=== PATIENT | male | born 1995 | race Caucasian/White ===

== ENCOUNTER 2016-04-21 17:03 | Emergency (ER) | payer BC ==
[2016-04-21 17:16] VITALS: BP 129/68
--- NOTE | 2016-04-21 17:47 | UC ---
Respiratory Complaint HPI - HPI Summary HPI Summary: This is a 21 yo male with asthma who presents with a request for a refill of his albuterol inhaler. He has been using his albuterol every 4 hours even throughout the night for several months. Denies any recent worsening of his symptoms but states that he wasn't able to get in to see his PCP for a refill in a timely manner. He reports he has frequent SOB, cough and chest tightness. These symptoms are relieved for a couple hours after using the inhaler. - History of Current Complaint Chief Complaint: UC Stated Complaint: COUGH - Allergies/Home Medications Allergies/Adverse Reactions: Allergies Allergy/AdvReac Type Severity Reaction Status Date / Time No Known Allergies Allergy Verified 04/21/16 17:17 PMH/Surg Hx/FS Hx/Imm Hx Respiratory History Of: Reports: Asthma Denies: Pneumonia Psychological History Of: Denies: Depression - Surgical History Surgical History: None - Family History Known Family History: Positive: None Negative: Cardiac Disease Family History: R & n/C - Social History Alcohol Use: Occasionally Substance Use Type: None Smoking Status (MU): Former Smoker Type: Cigarettes - Immunization History Most Recent Influenza Vaccination: 2015/2016 Review of Systems Constitutional: Negative Skin: Negative Eyes: Negative ENT: Negative Respiratory: Shortness Of Breath, Cough Cardiovascular: Negative Gastrointestinal: Negative Genitourinary: Negative Motor: Negative Neurovascular: Negative Musculoskeletal: Negative Neurological: Negative Psychological: Negative All Other Systems Reviewed And Are Negative: Yes Physical Exam Triage Information Reviewed: Yes Appearance: Well-Appearing Vital Signs: Initial Vital Signs Temp 98.7 F 04/21/16 17:10 Pulse 80 04/21/16 17:10 Resp 20 04/21/16 17:10 BP 129/68 04/21/16 17:10 Pulse Ox 99 04/21/16 17:10 Vital Signs Reviewed: Yes ENT: Positive: Normal ENT inspection Neck: Positive: Supple, Nontender Respiratory: Positive: Chest non-tender, Lungs clear, Normal breath sounds. Negative: Crackles, Rhonchi, Wheezing Cardiovascular Exam: Normal Cardiovascular: Positive: RRR, No Murmur Diagnostic Evaluation - Laboratory O2 Sat by Pulse Oximetry: 99 Respiratory Course/Dx - Course Course Of Treatment: This is a 21 yo male with poorly controlled asthma who presents requesting a refill of his albuterol. Recommend initiating Advair and Singulair to augment his asthma treatment. Refill for the albuterol sent to his pharmacy of choice along with the new prescriptions. Recommended that he follow up with his PCP at the next available appointment and his symptoms should be closely followed - Differential Dx/Diagnosis Differential Diagnosis/HQI/PQRI: Asthma, Bronchitis, Laryngitis, Sinusitis Provider Diagnoses: 1. Asthma - poorly controlled without acute exacerbation Discharge - Discharge Plan Condition: Stable Disposition: HOME Prescriptions: Albuterol HFA INHALER* [Ventolin HFA Inhaler*] 2 puff INH Q4H PRN #1 mdi PRN Reason: cough/SOB Fluticasone-Salmeterol 100-50* [Advair Diskus 100-50*] 1 puff INH BID #1 diskus Montelukast Sodium TAB* [Singulair TAB*] 10 mg PO DAILY #30 tab Patient Education Materials: Asthma (ED) Referrals: No Primary Care Phys,NOPCP [Primary Care Provider] - Additional Instructions: Activity: No restrictions Instructions: 1. Please follow up with your PCP at the next available appointment 2. Please take the new inhalers and allergy medications as directed 3. Continue to use albuterol as needed
== END 2016-04-21 17:55 | disposition home or self-care (01) ==
LOC: UCEAST 17:03
DX: J45.909 Unspecified asthma, uncomplicated (principal); Z76.0 Encounter for issue of repeat prescription; Z87.891 Personal history of nicotine dependence
CPT/HCPCS: 99212; G0463

== ENCOUNTER 2016-05-11 17:03 | Emergency (ER) | payer BC ==
[2016-05-11 17:45] VITALS: BP 123/64
[2016-05-11] MEDS ORDERED: Ibuprofen TAB* 600 MG PO ONE (18:03)
--- NOTE | 2016-05-11 18:34 | RAD ---
HISTORY: Right fifth digit injury COMPARISONS: None VIEWS: 3, Frontal, lateral, and oblique views of the fifth digit of the right hand FINDINGS: BONE DENSITY: Normal. BONES: On one projection, there is a linear lucency of the head of the fifth metacarpal JOINTS: There is no arthropathy. ALIGNMENT: There is no dislocation. SOFT TISSUES: Unremarkable. OTHER FINDINGS: None. IMPRESSION: PROBABLE NONDISPLACED FRACTURE OF THE DISTAL FIFTH METACARPAL
--- NOTE | 2016-05-22 11:59 | UC ---
Upper Extremity HPI - HPI Summary HPI Summary: jammed right 5th finger in a door today - History of Current Complaint Chief Complaint: UCGeneralIllness Stated Complaint: FINGER INJURY Time Seen by Provider: 05/11/16 17:53 Hx Obtained From: Patient ?: No Onset/Duration: Sudden Onset, Lasting Hours - 7, Still Present Severity Initially: Moderate Severity Currently: Moderate Pain Intensity: 6 Pain Scale Used: 0-10 Numeric Location Of Pain: Is Discrete @ - right 5th finger Character: Aching, Throbbing Aggravating Factor(s): Movement Alleviating Factor(s): Nothing Associated Signs And Symptoms: Positive: Swelling Related History: Dominant Hand Right - Allergies/Home Medications Allergies/Adverse Reactions: Allergies Allergy/AdvReac Type Severity Reaction Status Date / Time cat dander Allergy Intermediate Shortness Uncoded 05/11/16 17:31 of Breath PMH/Surg Hx/FS Hx/Imm Hx Previously Healthy: No Respiratory History Of: Reports: Asthma Denies: Pneumonia Psychological History Of: Denies: Depression - Surgical History Surgical History: None - Family History Known Family History: Positive: None Negative: Cardiac Disease Family History: R & n/C - Social History Occupation: Employed Full-time Lives: With Family Alcohol Use: Occasionally Substance Use Type: None Smoking Status (MU): Current Every Day Smoker Type: eCigarettes Have You Smoked in the Last Year: Yes Cessation Counseling: Patient Advised to Stop - Immunization History Most Recent Influenza Vaccination: 2015/2016 Review of Systems Constitutional: Negative Skin: Negative Eyes: Negative ENT: Negative Respiratory: Negative Cardiovascular: Negative Gastrointestinal: Negative Genitourinary: Negative Motor: Negative, Decreased ROM - right 5th finger Neurovascular: Negative Musculoskeletal: Negative, Arthralgia - right 5th finger Neurological: Negative Psychological: Negative All Other Systems Reviewed And Are Negative: Yes Physical Exam Triage Information Reviewed: Yes Appearance: Well-Appearing, No Pain Distress, Well-Nourished Vital Signs: Initial Vital Signs Temp 99 F 05/11/16 17:34 Pulse 78 05/11/16 17:34 Resp 18 05/11/16 17:34 BP 123/64 05/11/16 17:34 Pulse Ox 99 05/11/16 17:34 Eye Exam: Normal Eyes: Positive: Conjunctiva Clear ENT Exam: Normal ENT: Positive: Normal ENT inspection, Hearing grossly normal. Negative: Nasal congestion, Nasal drainage, Trismus, Muffled/hoarse voice Dental Exam: Normal Neck exam: Normal Neck: Positive: Supple, Nontender Respiratory Exam: Normal Respiratory: Positive: No respiratory distress, No accessory muscle use Cardiovascular Exam: Normal Cardiovascular: Positive: RRR, Pulses Normal, Brisk Capillary Refill Musculoskeletal Exam: Other Musculoskeletal: Positive: ROM Limited @ - right 5th finger, Edema @ - right fifth finger Neurological Exam: Normal Neurological: Positive: Alert, Muscle Tone Normal Psychological Exam: Normal Skin Exam: Normal Diagnostics - Radiology No standard instances Xray Interpretation: Positive (See Comments) - non displaced fracture of distal 5th metacarpal Radiology Interpretation Completed By: Radiologist Upper Extremity Course/Dx - Course Course Of Treatment: splint, rice, ibuprofen follow with ortho off work until cleared by ortho - Differential Dx/Diagnosis Differential Diagnosis/HQI/PQRI: Fracture (Closed), Strain, Sprain Provider Diagnoses: non-displaced fracture distal 5th metacarpal Discharge - Discharge Plan Condition: Stable Disposition: HOME Patient Education Materials: Ibuprofen (By mouth), Finger Fracture (ED), RICE Therapy (ED) Forms: *Work Release Referrals: Freddie Mendieta MD [Primary Care Provider] - Evita Szymanski MD [Medical Doctor] - 5 Days
== END 2016-05-11 19:08 | disposition home or self-care (01) ==
LOC: UCEAST 17:03
DX: S62.346A Nondisplaced fracture of base of fifth metacarpal bone, right hand, initial encounter for closed fracture (principal); W23.0XXA Caught, crushed, jammed, or pinched between moving objects, initial encounter; Y93.9 Activity, unspecified; Y92.9 Unspecified place or not applicable; J45.909 Unspecified asthma, uncomplicated; F17.210 Nicotine dependence, cigarettes, uncomplicated
CPT/HCPCS: 73140; 99213; A9270-GY; G0463

== ENCOUNTER 2017-09-13 11:39 | Emergency (ER) | payer BC ==
[2017-09-13 11:46] VITALS: BP 125/65
--- NOTE | 2017-09-13 12:00 | UC ---
Throat Pain/Nasal Joaquin HPI - HPI Summary HPI Summary: This is chayo Patel documenting for Dr. Manuel Church MD. Pt is a 22 y/o M who presents to [facility] c/o sore throat for past 2 days. Rates pain intensity as 8/10 in severity. Describes the pain as a sharp, burning, ache per nurses report. Notes body aches and dysphagia. - History of Current Complaint Chief Complaint: UCGeneralIllness Stated Complaint: SORE THROAT Time Seen by Provider: 09/13/17 11:49 Hx Obtained From: Patient Onset/Duration: Lasting Days, Still Present Severity: Severe Pain Intensity: 8 Pain Scale Used: 0-10 Numeric Associated Signs & Symptoms: Positive: Dysphagia, Other - Body Aches - Allergies/Home Medications Allergies/Adverse Reactions: Allergies Allergy/AdvReac Type Severity Reaction Status Date / Time cat dander Allergy Intermediate Shortness Uncoded 09/13/17 11:47 of Breath PMH/Surg Hx/FS Hx/Imm Hx Endocrine History: Diabetes - NEGATIVE Cardiovascular History: Hypertension - NEGATIVE - Surgical History Surgical History: None - Family History Known Family History: Negative: Cardiac Disease Family History: R & n/C - Social History Alcohol Use: Occasionally Substance Use Type: None Smoking Status (MU): Former Smoker Type: eCigarettes Have You Smoked in the Last Year: Yes - Immunization History Most Recent Influenza Vaccination: 2016/2017 Review of Systems Constitutional: Other - Body aches ENT: Sore Throat, Other - Dysphagia All Other Systems Reviewed And Are Negative: Yes Physical Exam - Summary Physical Exam Summary: VITAL SIGNS: Reviewed. GENERAL: Patient is a well-developed and nourished male who is lying comfortable in the stretcher. Patient is not in any acute respiratory distress. HEAD AND FACE: Normocephalic EYES: PERRLA, EOMI x 2. EARS: Hearing grossly intact. MOUTH: Phayngeal erythema. Exudate on tonsils. NECK: Supple, trachea is midline, no adenopathy, no JVD, no carotid bruit. CHEST: Symmetric, no tenderness at palpation LUNGS: Clear to auscultation bilaterally. No wheezing or crackles. CVS: Regular rate and rhythm, S1 and S2 present, no murmurs or gallops appreciated. ABDOMEN: Soft, non-tender. Bowel sounds are normal. No abdominal abnormal pulsations. EXTREMITIES: Full ROM in all major joints, no edema, no cyanosis or clubbing. NEURO: Alert and oriented x 3. No acute neurological deficits. Speech is normal and follows commands. SKIN: Dry and warm Triage Information Reviewed: Yes Vital Signs: Initial Vital Signs Temp 98.6 F 09/13/17 11:44 Pulse 86 09/13/17 11:44 Resp 17 09/13/17 11:44 BP 125/65 09/13/17 11:44 Pulse Ox 100 09/13/17 11:44 Vital Signs Reviewed: Yes Re-Evaluation - Re-Evaluation First Eval Re-Evaluation Time: 12:35 - Discussed exam results with pt. Pt asked for a note off work today. Throat Pain/Nasal Course/Dx - Course Assessment/Plan: Patient is a 22-year-old male with chief complaint of sore throat. Strep pharyngitis positive. The patient was given Augmentin and discharged home with follow-up with PCP. Patient was given an excuse for work for today. He was instructed to go to the ED the patient's worsen. Patient understands and agrees. - Differential Dx/Diagnosis Differential Diagnosis/HQI/PQRI: Epiglottitis, Laryngitis, Augusto's Angina, Peritonsillar Abscess, Pharyngitis, Tonsillitis Provider Diagnoses: Strep pharyngitis Discharge - Sign-Out/Discharge Documenting (check all that apply): Patient Departure - Discharge Plan Condition: Stable Disposition: HOME Prescriptions: Amoxicillin/Clavulanate TAB* [Augmentin TAB 875*] 875 mg PO BID #20 tab Patient Education Materials: Strep Throat (DC) Forms: *Work Release Referrals: [facility] [Outside] No Primary Care Phys,NOPCP [Primary Care Provider] - Additional Instructions: Take medications as instructed and adhere to plan Take Acetaminophen or ibuprofen for pain or fever Increase your fluid intake Return to the or go to the emergency department if symptoms worsen Follow-up with primary care physician in next 2-3 days - Billing Disposition and Condition Condition: STABLE Disposition: Home
== END 2017-09-13 12:40 | disposition home or self-care (01) ==
LOC: UCEAST 11:39
DX: J02.0 Streptococcal pharyngitis (principal); Z87.891 Personal history of nicotine dependence
CPT/HCPCS: 87651; 99212; G0463

== ENCOUNTER 2019-05-11 09:06 | Emergency (ER) | payer BC ==
[2019-05-11] MEDS ORDERED: Ibuprofen TAB* 600 MG PO ONE (09:23)
[2019-05-11] MEDS ORDERED: Lidocaine 2% VISCOUS* 15 ML UDC PO ONE (09:23)
--- NOTE | 2019-05-11 09:27 | ED ---
Throat Pain/Nasal Congestion - HPI Summary HPI Summary: 24 year old male with no significant medical history presents to the emergency department with a CC of /10 "sore throat and shortness of breath" x 2 days. Pt has an associated fever which he measured at 102.0 F at home. Pt has been taking ibuprofen for fever and pain; ;last dose at 2am. Pt states due to his pain his PO intake has decreased. Pt denies recent travel, exposure to COVID-19 , cough, nasal congestion, rash, pain with urination, abdominal pain, chest pain. - History of Current Complaint Time Seen by Provider: 05/11/19 09:09 Hx Obtained From: Patient Onset/Duration: Gradual Onset, Lasting Days Severity: Severe Associated Signs And Symptoms: Negative: Drooling, Wheezing, Hoarseness - Allergies/Home Medications Allergies/Adverse Reactions: Allergies Allergy/AdvReac Type Severity Reaction Status Date / Time cat dander Allergy Intermediate Shortness Uncoded 09/13/17 11:47 of Breath Home Medications: Home Medications Albuterol HFA INHALER* [Ventolin HFA Inhaler*] 2 puff INH Q4H PRN 05/11/19 [ History Confirmed 05/11/19] predniSONE 20 mg TAB [Deltasone 20 MG TAB*] 40 mg PO DAILY #8 tab 05/11/19 [Rx] PMH/Surg Hx/FS Hx/Imm Hx Respiratory History: Reports: Hx Asthma Denies: Hx Pneumonia Psychiatric History: Denies: Hx Eating Disorder, Hx Depression, Hx of Violent Episodes Against Others Infectious Disease History: Denies: Hx Clostridium Difficile, Hx Hepatitis, Hx Human Immunodeficiency Virus (HIV), Hx of Known/Suspected MRSA, Hx Shingles, Hx Tuberculosis, Hx Known/ Suspected VRE, Traveled Outside the [place] in Last 30 Days - Family History Known Family History: Positive: None Negative: Cardiac Disease Family History: R & n/C - Social History Alcohol Use: Occasionally Substance Use Type: Reports: None Hx Tobacco Use: Yes Smoking Status (MU): Former Smoker Type: eCigarettes Have You Smoked in the Last Year: Yes Review of Systems Positive: Fever, Fatigue Eyes: Negative Positive: Sore Throat. Negative: Epistaxis, Dental Pain, Nasal Discharge Cardiovascular: Negative Positive: Shortness Of Breath. Negative: Cough Gastrointestinal: Negative Genitourinary: Negative Positive: Myalgia Skin: Negative Neurological/Mental Status: Negative Psychological: Normal All Other Systems Reviewed And Are Negative: Yes Physical Exam - Summary Physical Exam Summary: pt is in no acute distress. No trismus. B/L tonsilar swelling with exudates. Left anterior cervical lymphadenopathy. Triage Information Reviewed: Yes Vital Signs Reviewed: Yes Appearance: Positive: Well-Appearing, No Pain Distress, Well-Nourished Skin: Positive: Warm, Skin Color Reflects Adequate Perfusion Eyes: Positive: EOMI, MIGUEL ENT: Positive: Hearing grossly normal, Pharyngeal erythema, Tonsillar swelling, Tonsillar exudate. Negative: Pharynx normal, Nasal congestion, Nasal drainage, Trismus, Muffled voice Respiratory/Lung Sounds: Positive: Clear to Auscultation, Breath Sounds Present Cardiovascular: Positive: RRR, S1, S2 Abdomen Description: Positive: Nontender, Soft. Negative: Distended, Guarding Bowel Sounds: Positive: Present Musculoskeletal: Positive: Strength/ROM Intact Neurological: Positive: Sensory/Motor Intact, Alert, Oriented to Person Place, Time, Normal Gait, Facial Symmetry, Speech Normal Psychiatric: Positive: Normal, Affect/Mood Appropriate AVPU Assessment: Alert Procedures - Sedation Patient Received Moderate/Deep Sedation with Procedure: No EENT Course/Dx - Course Course Of Treatment: Pt evaluated for throat pain. Vitals noted, pt afebrile. Pt given ibuprofen and viscous lidocain for pain. Strep pharengitis culture and influenza serology obtained which returned negative. PT likely experiencing viral pharengitis. Pt given Rx for prednisone 40mg daily for 4 days due to significant tonsilar swelling. No evidence of RETRIMMER or ludwigs angina. Pt discharged with outpatient follow up. - Differential Diagnoses Differential Diagnoses: Influenza, Laryngitis, Augusto's Angina, Mastoiditis, Pharyngitis, Tonsilitis - Diagnoses Provider Diagnoses: Sore throat Discharge ED - Sign-Out/Discharge Documenting (check all that apply): Patient Departure - Discharge Plan Condition: Stable Disposition: HOME Prescriptions: predniSONE 20 mg TAB [Deltasone 20 MG TAB*] 40 mg PO DAILY #8 tab Patient Education Materials: Strep Throat (ED) Referrals: [facility] [Outside] - 5 Days No Primary Care Phys,NOPCP [Primary Care Provider] - Additional Instructions: Please take ibuprofen 600mg every 6 hours as needed for pain. Please take prednisone 40mg daily as directed. Please [facility] in [facility] days for further evaluation as management. - Billing Disposition and Condition Condition: STABLE Disposition: Home
[2019-05-11 09:58] LABS: Influenza A Molecular Negative (Negative); Influenza B Molecular Negative (Negative)
[2019-05-11 10:06] LABS: Rapid Strep Molecular Negative (Negative)
[2019-05-11 10:20] VITALS: BP 126/73
== END 2019-05-11 10:20 | disposition home or self-care (01) ==
LOC: ED 09:06
DX: J02.9 Acute pharyngitis, unspecified (principal); Z79.899 Other long term (current) drug therapy; Z79.52 Long term (current) use of systemic steroids; J45.909 Unspecified asthma, uncomplicated; Z87.891 Personal history of nicotine dependence
CPT/HCPCS: 87651; 99283; A9270-GY; J7512